=== PATIENT | female | born 1970 | race Caucasian/White ===

== ENCOUNTER 2016-10-09 07:20 | Day surgery (SDC) | payer OTHER ==
[2016-10-09] MEDS ORDERED: PEPCID ONE (07:55)
[2016-10-09] MEDS ORDERED: LR 1,000 ML ONE (07:56)
[2016-10-09] MEDS ORDERED: REGLAN ONE (07:56)
[2016-10-09] MEDS ORDERED: KEFZOL 1 GM/D5W 50 ML ONE (07:56)
[2016-10-09] MEDS ORDERED: VERSED ONE (08:48)
[2016-10-09] MEDS ORDERED: DIPRIVAN 1% ONE ×2 (08:49→13:05)
[2016-10-09 10:28] VITALS: BP 115/71
[2016-10-09] MEDS ORDERED: ZOFRAN ONE (10:30)
[2016-10-09] MEDS ORDERED: DECADRON ONE (10:30)
[2016-10-09] MEDS ORDERED: XYLOCAINE-MPF 2% ONE (10:30)
[2016-10-09] MEDS ORDERED: EPHEDRINE ONE (10:30)
--- NOTE | 2016-10-09 14:34 | OPERATIVE NOTE ---
PROCEDURE DATE: 10/09/2016 SURGEON: Geo Ballard MD PREOPERATIVE DIAGNOSES: 1. Left renal stone. 2. Left flank pain. PROCEDURE: Left extracorporeal shockwave lithotripsy. INDICATIONS: This 46-year-old female who has had a history of right ureteral stone and underwent treatment. She developed intermittent left flank pain and had CT scan, which revealed 6 mm left renal stone. She desires intervention. FINDINGS: Shocks, 3000 delivered at a frequency of 2 hertz with energy settings from 1 until 6 until total fluoroscopy time of under 4 minutes. The stone showed excellent fragmentation. PROCEDURE IN DETAIL: After obtaining informed consent, patient was brought to the operating room. Perioperative antibiotics and laryngeal mask airway anesthesia were administered. She was placed in supine position with the lithotripter over her left flank. The stone was visualized. It was broken up per above stated settings. Then 20 mg of intravenous Lasix were given. She tolerated the procedure well, was extubated, taken to PACU for further recovery. ESTIMATED BLOOD LOSS: None. COMPLICATIONS: None. DISPOSITION: To PACU and subsequently home with prescriptions for [place] 7.5 (15), Cipro 250 (6).
== END 2016-10-09 10:35 | disposition home or self-care (01) ==
LOC: OPS 07:20
PROVIDERS: ATTEND Urology
DX: N20.0 Calculus of kidney (principal); F17.210 Nicotine dependence, cigarettes, uncomplicated
CPT/HCPCS: J0690; J1100; J2250; J2405; J7120